=== PATIENT | male | born 1995 | race Asian ===

== ENCOUNTER 2017-12-04 23:13 | Emergency (ER) | payer MEDICAID, OTHER ==
[~2017-12-04] VITALS: Ht 165.1 cm; Wt 120.0 kg
[~2017-12-04 23:13] MED LIST: NO HOME MEDS
[2017-12-05] MEDS ORDERED: IBUP-1985 PO (01:58)
[2017-12-05 02:14] VITALS: BP 158/88
== END 2017-12-05 02:16 | disposition home or self-care (01) ==
LOC: ER 23:13
DX: M25.571 Pain in right ankle and joints of right foot (principal); Z90.49 Acquired absence of other specified parts of digestive tract; Z98.890 Other specified postprocedural states; Z91.018 Allergy to other foods; Z79.899 Other long term (current) drug therapy
CPT/HCPCS: 73610; 99284